=== PATIENT | female | born 1990 | race Caucasian/White ===

== ENCOUNTER 2024-12-01 06:29 | Emergency (ER) | payer SELFPAY ==
[~2024-12-01] VITALS: Ht 167.6 cm; Wt 65.8 kg
[2024-12-01] MEDS ORDERED: MAG HYDROX/AL HYDROX/SIMETH 30 ML UDC ONE (07:01)
[2024-12-01] MEDS ORDERED: LIDOCAINE VISCOUS 2% UD 15 ML UDC ONE (07:01)
[2024-12-01] MEDS ORDERED: FAMOTIDINE/PF INJ 20 MG/2 ML VIAL IV ONE (07:02)
[2024-12-01] MEDS: IV NS 0.9% 500 ML BAG IV ONE (07:11)
[2024-12-01] MEDS: MAG HYDROX/AL HYDROX/SIMETH 30 ML UDC PO ONE (07:11)
[2024-12-01] MEDS: FAMOTIDINE/PF INJ 20 MG/2 ML VIAL IV ONE (07:11)
[2024-12-01] MEDS: LIDOCAINE VISCOUS 2% UD 15 ML UDC MM ONE (07:11)
[2024-12-01 07:20] LABS: BASOPHILS % (AUTO) 0.3 % (0.0-2.0); EOSINOPHILS # (AUTO) 0.1 K/uL (0.0-0.7); EOSINOPHILS % (AUTO) 2.4 % (0.0-6.0); HEMATOCRIT 39 % (33-45); HEMOGLOBIN 13.3 g/dL (11.5-14.8); LYMPHOCYTES # (AUTO) 1.3 K/uL (0.8-4.8); LYMPHOCYTES % (AUTO) 24.5 % (20.0-44.0); MEAN CORPUSCULAR HEMOGLOBIN 34 PG (26.0-33.0); MEAN CORPUSCULAR HGB CONC 35 g/dl (31.0-36.0); MEAN CORPUSCULAR VOLUME 99 fL (82-100); MONOCYTES # (AUTO) 0.4 K/uL (0.1-1.30); MONOCYTES % (AUTO) 8.1 % (2.0-12.0); NEUTROPHILS # (AUTO) 3.5 K/uL (1.8-8.9); NEUTROPHILS % (AUTO) 64.7 % (43.0-81.0); PLATELET COUNT (AUTO) 228 K/uL (150-450); RED BLOOD CELL COUNT(AUTO) 3.91 MIL/uL (4.0-5.2); RED CELL DISTRIBUTION WIDTH 12.2 % (11.5-15.0); WHITE BLOOD COUNT (AUTO) 5.4 K/uL (4.3-11.0)
[2024-12-01 07:39] LABS: ALBUMIN 3.8 g/dL (3.4-5.0); BILIRUBIN,DIRECT 0.2 mg/dL (0.0-0.2); BILIRUBIN,TOTAL 0.5 mg/dL (0.2-1.0); CALCIUM, SERUM 8.5 mg/dL (8.5-10.1); CREATININE 0.8 mg/dL (0.6-1.3); POTASSIUM 3.8 mmol/L (3.5-5.1); TOTAL PROTEIN, SERUM 7.6 g/dL (6.4-8.2)
[2024-12-01] MEDS ORDERED: OMEP20TA20 PO (08:00)
[2024-12-01] MEDS ORDERED: FAMO-131 PO (08:00)
[2024-12-01 09:33] VITALS: BP 123/80; TEMP 98.1; O2SAT 100
== END 2024-12-01 09:34 | disposition home or self-care (01) ==
LOC: ER 06:34
DX: K29.70 Gastritis, unspecified, without bleeding (principal); Z79.899 Other long term (current) drug therapy; Z87.19 Personal history of other diseases of the digestive system
CPT/HCPCS: 99283; 96374; 96361; 85025; 80048; 83690; 80076; 36415; J3490; J7030